=== PATIENT | male | born 1960 | race Two or more races ===

== ENCOUNTER 2020-01-26 12:09 | Outpatient (CLI) | payer OTHER | END 2020-01-26 12:14 | disposition home or self-care (01) | LOC: RAD 12:09 | DX: S82.841A Displaced bimalleolar fracture of right lower leg, initial encounter for closed fracture (principal) ==

== ENCOUNTER 2020-04-05 10:50 | Outpatient (CLI) | payer OTHER | END 2020-04-05 10:57 | disposition home or self-care (01) | LOC: RAD 10:50 | DX: S82.841D Displaced bimalleolar fracture of right lower leg, subsequent encounter for closed fracture with routine healing (principal) ==

== ENCOUNTER 2020-12-02 16:03 | Outpatient (CLI) | payer OTHER | END 2020-12-02 16:08 | disposition home or self-care (01) | LOC: RAD 16:03 | DX: S82.841D Displaced bimalleolar fracture of right lower leg, subsequent encounter for closed fracture with routine healing (principal) ==

== ENCOUNTER 2021-01-03 11:55 | Outpatient (CLI) | payer OTHER | END 2021-01-03 12:02 | disposition home or self-care (01) | LOC: RAD 11:55 | DX: S82.841D Displaced bimalleolar fracture of right lower leg, subsequent encounter for closed fracture with routine healing (principal) ==

== ENCOUNTER → 2021-02-06 | Outpatient (CLI) | payer OTHER | END | disposition home or self-care (01) | LOC: RAD 11:03 | DX: M25.571 Pain in right ankle and joints of right foot (principal) ==

== ENCOUNTER 2021-03-09 11:21 | Outpatient (CLI) | payer OTHER | END 2021-03-09 11:25 | disposition home or self-care (01) | LOC: RAD 11:21 | DX: S82.841D Displaced bimalleolar fracture of right lower leg, subsequent encounter for closed fracture with routine healing (principal) ==

== ENCOUNTER 2021-04-06 11:47 | Outpatient (CLI) | payer OTHER | END 2021-04-06 11:53 | disposition home or self-care (01) | LOC: RAD 11:47 | PROVIDERS: ATTEND General Practice | DX: S82.841D Displaced bimalleolar fracture of right lower leg, subsequent encounter for closed fracture with routine healing (principal) ==

== ENCOUNTER 2021-06-15 12:56 | Outpatient (CLI) | payer OTHER | END 2021-06-15 13:00 | disposition home or self-care (01) | LOC: RAD 12:56 | DX: S82.842D Displaced bimalleolar fracture of left lower leg, subsequent encounter for closed fracture with routine healing (principal) ==

== ENCOUNTER 2021-07-21 14:13 | Outpatient (CLI) | payer OTHER | END 2021-07-21 14:21 | disposition home or self-care (01) | LOC: RAD 14:13 | PROVIDERS: ATTEND General Practice | DX: S82.841D Displaced bimalleolar fracture of right lower leg, subsequent encounter for closed fracture with routine healing (principal) ==

== ENCOUNTER 2022-01-23 13:10 | Outpatient (CLI) | payer OTHER | END 2022-01-23 13:21 | disposition home or self-care (01) | LOC: MRI 13:10 | PROVIDERS: ATTEND General Practice | DX: S83.232A Complex tear of medial meniscus, current injury, left knee, initial encounter (principal) | CPT/HCPCS: 73721 ==